=== PATIENT | female | born 1995 | race Hispanic/Latino ===

== ENCOUNTER 2018-02-19 17:42 | Emergency (ER) | payer OTHER ==
[~2018-02-19] VITALS: Ht 160 cm; Wt 88.1 kg
[~2018-02-19 17:42] MED LIST: BACTRIM DS1 TAB PO; CIPROFLOXACN500 MG PO; DEPO-PROVER150 MG/M1 IM; FLOXIN OTIC0.3 % OT; KEFLEX500 MG OR; LEVEMIR1000 UNITS SC; LORTAB 10 PO; METFORMIN500 MG PO; NORCO1 TA1 PO
[2018-02-19] MEDS ORDERED: MOTRIN800 MG PO (18:22)
[2018-02-19] MEDS ORDERED: SB CLOTRIMAZ1 % EX (18:22)
[2018-02-19 18:29] LABS: URINE BILIRUBIN - DIPSTICK NEGATIVE (NEGATIVE); URINE BLOOD DIPSTICK NEGATIVE (NEGATIVE); URINE COLOR YELLOW; URINE GLUCOSE - DIPSTICK >=1000 mg/dL (NEGATIVE); URINE KETONE 15 mg/dL (NEGATIVE); URINE LEUK ESTERASE NEGATIVE (NEGATIVE); URINE NITRITE - DIPSTICK NEGATIVE (Negative); URINE PROTEIN - DIPSTICK NEGATIVE (NEG-TRACE); URINE SPECIFIC GRAVITY 1.025; URINE UROBILINOGEN - DIPSTICK 0.2 E.U./dL (0.2)
[2018-02-19 18:31] LABS: URINE CLARITY CLEAR
[2018-02-19] MEDS ORDERED: TRESIBA FL100 UNIT/M SC (18:36)
[2018-02-19 18:55] VITALS: BP 139/92
== END 2018-02-19 18:55 | disposition home or self-care (01) | DRG 759 ==
LOC: ED 17:42
PROVIDERS: Emergency Medicine
DX: B37.3 Candidiasis of vulva and vagina (principal); E10.9 Type 1 diabetes mellitus without complications; Z79.4 Long term (current) use of insulin; Z91.14 Patient's other noncompliance with medication regimen

== ENCOUNTER 2020-02-29 | Emergency (ER) | payer OTHER ==
[~2020-02-29] MED LIST changes: +MOTRIN800 MG PO; +SB CLOTRIMAZ1 % EX; +TRESIBA FL100 UNIT/M SC
[2020-02-29] MEDS ORDERED: ATENOLOL25 MG PO (19:48)
[2020-02-29] MEDS ORDERED: KEFLEX500 M1 PO (21:08)
--- NOTE | 2020-03-02 12:54 | NUR ---
Notifed patient of Covid results (Negative). Advised patient to follow up with PCP or return to the ED for urgent needs. Advised patient to continue practicing Covid prevention. Patient verbalized understanding.
== END 2020-02-29 21:20 | disposition home or self-care (01) | DRG 153 ==
DX: J02.9 Acute pharyngitis, unspecified (principal); E11.9 Type 2 diabetes mellitus without complications; Z79.4 Long term (current) use of insulin; Z20.828 Contact with and (suspected) exposure to other viral communicable diseases

== ENCOUNTER 2020-10-17 18:17 | Emergency (ER) | payer SELFPAY ==
[~2020-10-17] VITALS: Ht 160 cm; Wt 75.0 kg
[~2020-10-17 18:17] MED LIST changes: +ATENOLOL25 MG PO; +KEFLEX500 M1 PO
[2020-10-17 19:30] LABS: HEMATOCRIT 42.5 % (37.0-47.0); HEMOGLOBIN 14.5 g/dl (12.0-16.0); IMMATURE GRANULOCYTES 0.3 % (0.0-5.0); MEAN CELL VOLUME 89.7 fL CALC (80.0-100.0); MEAN CORPUSCULAR HGB 30.6 pG CALC (26.0-32.0); MEAN CORPUSCULAR HGB CONC 34.1 g/dL CAL (32.0-36.0); NEUT# 6.62 thou/uL (2.00-7.15); RED BLOOD COUNT 4.74 mill/uL (4.20-5.60); RED CELL DISTRI WIDTH 11.5 % (11.5-15.5)
[2020-10-17 19:45] LABS: URINE BILIRUBIN - DIPSTICK NEGATIVE (NEGATIVE); URINE BLOOD DIPSTICK NEGATIVE (NEGATIVE); URINE COLOR YELLOW; URINE GLUCOSE - DIPSTICK >=1000 mg/dL (NEGATIVE); URINE KETONE NEGATIVE (NEGATIVE); URINE LEUK ESTERASE NEGATIVE (NEGATIVE); URINE NITRITE - DIPSTICK POSITIVE (Negative); URINE PROTEIN - DIPSTICK NEGATIVE (NEG-TRACE); URINE UROBILINOGEN - DIPSTICK 0.2 E.U./dL (0.2)
[2020-10-17 19:48] LABS: ALBUMIN 4.1 g/dL (3.2-5.0); ALKALINE PHOSPHATASE 144 u/l (38-126); AMYLASE 47 u/l (30-110); ANION GAP 15 (6-22 (CALC)); BILIRUBIN, TOTAL 0.3 mg/dL (0.0-1.4); BUN 10 mg/dL (7-17); BUN/CREATININE RATIO 19 (12-20 (CALC)); CARBON DIOXIDE 25 mmol/l (22-30); CHLORIDE 99 mmol/l (95-108); CREATININE 0.6 mg/dL (0.5-1.0); GFR > 60 ML/MIN (>=60 (CALC)); GFR FOR AFR.AMER. > 60 ML/MIN (>=60 (CALC)); LIPASE 98 u/l (23-300); POTASSIUM 4.4 mmol/l (3.5-5.1); SGOT/AST 24 u/l (14-36); SODIUM 134 mmol/l (137-146); TOTAL PROTEIN 7.2 g/dL (6.3-8.2)
[2020-10-17 19:52] LABS: URINE BACTERIA FEW hpf; URINE RBC 0-2 RBC/hpf (0-5); URINE SQUAMOUS EPITHELIAL CELL FEW EPI/hpf (0-FEW); URINE WBC 0-2 WBC/hpf (0-5)
[2020-10-17 20:57] VITALS: BP 119/73
[2020-10-17] MEDS ORDERED: VOLTAREN75 MG PO (21:12)
== END 2020-10-17 21:28 | disposition home or self-care (01) | DRG 563 ==
LOC: ED 18:17
PROVIDERS: Family Medicine
DX: S39.012A Strain of muscle, fascia and tendon of lower back, initial encounter (principal); K59.00 Constipation, unspecified; E11.65 Type 2 diabetes mellitus with hyperglycemia; T38.3X6A Underdosing of insulin and oral hypoglycemic [antidiabetic] drugs, initial encounter; X58.XXXA Exposure to other specified factors, initial encounter; Z91.128 Patient's intentional underdosing of medication regimen for other reason; Z79.4 Long term (current) use of insulin

== ENCOUNTER 2021-05-23 11:24 | Emergency (ER) | payer OTHER ==
[~2021-05-23] VITALS: Ht 160 cm; Wt 71.4 kg
[~2021-05-23 11:24] MED LIST changes: +LORTAB 1010 MG PO; +MEDDOSEPAK PO; +NORCO1 TA2 PO; +NOVOLIN N100 UNIT/1 IJ; +TENORMIN PO; +TRAMADOL HCL50 MG PO; +TRESIBA100 UNIT/M SC; +VOLTAREN75 MG PO
[2021-05-23] MEDS ORDERED: BACTRIM DS1 TAB PO (12:30)
[2021-05-23] MEDS ORDERED: KEFLEX500 MG PO (12:30)
[2021-05-23 13:00] VITALS: BP 118/64
[2021-06-01] MEDS ORDERED: ATENOLOL25 MG PO (10:38)
[2021-06-14] MEDS ORDERED: TRAMADOL HCL50 MG PO (08:21)
== END 2021-05-23 13:00 | disposition home or self-care (01) | DRG 603 ==
LOC: ED 11:24
PROC: 0H98XZZ Drainage of Buttock Skin, External Approach (ICD-10-PCS; principal; 2021-05-23)
DX: L02.31 Cutaneous abscess of buttock (principal); E11.9 Type 2 diabetes mellitus without complications; T38.3X6A Underdosing of insulin and oral hypoglycemic [antidiabetic] drugs, initial encounter; Z91.128 Patient's intentional underdosing of medication regimen for other reason; Z79.4 Long term (current) use of insulin

== ENCOUNTER 2021-05-28 19:10 | Emergency (ER) | payer OTHER ==
[~2021-05-28] VITALS: Ht 160 cm; Wt 75.0 kg
[~2021-05-28 19:10] MED LIST changes: +KEFLEX500 MG PO
[2021-05-28 20:13] VITALS: BP 127/56
[2021-06-01] MEDS ORDERED: ATENOLOL25 MG PO (10:38)
[2021-06-14] MEDS ORDERED: TRAMADOL HCL50 MG PO (08:21)
== END 2021-05-28 20:48 | disposition home or self-care (01) | DRG 951 ==
LOC: ED 19:10
DX: Z48.01 Encounter for change or removal of surgical wound dressing (principal); E11.9 Type 2 diabetes mellitus without complications; Z79.4 Long term (current) use of insulin

== ENCOUNTER 2021-07-06 06:20 | Day surgery (SDC) | payer OTHER ==
[~2021-07-06] VITALS: Ht 160 cm; Wt 68.0 kg
[2021-07-06 08:43] VITALS: BP 114/68
== END 2021-07-06 08:55 | disposition home or self-care (01) | DRG 552 ==
LOC: ORM 06:20
PROVIDERS: ATTEND Anesthesiology Pain Medicine
DX: M46.1 Sacroiliitis, not elsewhere classified (principal); M12.9 Arthropathy, unspecified; M79.604 Pain in right leg
CPT/HCPCS: 20552; G0260

== ENCOUNTER 2022-04-14 07:51 | Emergency (ER) | payer OTHER ==
[2022-04-14] VITALS (7 sets, daily range): BP systolic 106–123; BP diastolic 44–80
[~2022-04-14] VITALS: Ht 160 cm; Wt 84.5 kg
[2022-04-14 08:33] LABS: HEMATOCRIT 45.3 % (37.0-47.0); HEMOGLOBIN 15.3 g/dl (12.0-16.0); IMMATURE GRANULOCYTES 0.6 % (0.0-5.0); MEAN CELL VOLUME 88.5 fL CALC (80.0-100.0); MEAN CORPUSCULAR HGB 29.9 pG CALC (26.0-32.0); MEAN CORPUSCULAR HGB CONC 33.8 g/dL CAL (32.0-36.0); NEUT# 8.91 thou/uL (2.00-7.15); RED BLOOD COUNT 5.12 mill/uL (4.20-5.60); RED CELL DISTRI WIDTH 12.5 % (11.5-15.5)
[2022-04-14 08:48] LABS: ALKALINE PHOSPHATASE 164 u/l (38-126); BUN 10 mg/dL (7-17); BUN/CREATININE RATIO 24 (12-20 (CALC)); CHLORIDE 104 mmol/l (95-108); CREATININE 0.4 mg/dL (0.5-1.0); GFR FOR AFR.AMER. > 60 ML/MIN (>=60 (CALC)); GFR OTHER RACES > 60 ML/MIN (>=60 (CALC)); LIPASE 112 u/l (23-300); POTASSIUM 4.1 mmol/l (3.5-5.1); SODIUM 136 mmol/l (137-146); TOTAL PROTEIN 7.2 g/dL (6.3-8.2)
[2022-04-14 08:51] LABS: ANION GAP 17 (6-22 (CALC)); BILIRUBIN, TOTAL 0.6 mg/dL (0.0-1.4); CARBON DIOXIDE 19 mmol/l (22-30)
[2022-04-14 08:52] LABS: SGOT/AST 411 u/l (14-36)
[2022-04-14 11:33] LABS: URINE BILIRUBIN - DIPSTICK NEGATIVE (NEGATIVE); URINE BLOOD DIPSTICK TRACE-INTACT (NEGATIVE); URINE COLOR YELLOW; URINE GLUCOSE - DIPSTICK >=1000 mg/dL (NEGATIVE); URINE KETONE 40 mg/dL (NEGATIVE); URINE LEUK ESTERASE NEGATIVE (NEGATIVE); URINE PH 5.5 (4.5-8.0); URINE PROTEIN - DIPSTICK NEGATIVE (NEG-TRACE); URINE SPECIFIC GRAVITY <=1.005; URINE UROBILINOGEN - DIPSTICK 0.2 E.U./dL (0.2)
[2022-04-14 11:34] LABS: URINE NITRITE - DIPSTICK NEGATIVE (Negative)
== END 2022-04-14 13:11 | disposition home or self-care (01) | DRG 125 ==
LOC: ED 07:51
PROVIDERS: Family Medicine
DX: S05.01XA Injury of conjunctiva and corneal abrasion without foreign body, right eye, initial encounter (principal); R51.9 Headache, unspecified; G93.0 Cerebral cysts; E11.9 Type 2 diabetes mellitus without complications; Z79.4 Long term (current) use of insulin; V89.2XXA Person injured in unspecified motor-vehicle accident, traffic, initial encounter
CPT/HCPCS: Q9967

== ENCOUNTER 2022-04-16 11:18 | Emergency (ER) | payer OTHER ==
[~2022-04-16] VITALS: Ht 160 cm; Wt 84.6 kg
[2022-04-16 12:40] LABS: HEMATOCRIT 46.7 % (37.0-47.0); HEMOGLOBIN 15.7 g/dl (12.0-16.0); IMMATURE GRANULOCYTES 0.3 % (0.0-5.0); MEAN CORPUSCULAR HGB 29.9 pG CALC (26.0-32.0); MEAN CORPUSCULAR HGB CONC 33.6 g/dL CAL (32.0-36.0); NEUT# 7.91 thou/uL (2.00-7.15); RED BLOOD COUNT 5.25 mill/uL (4.20-5.60); RED CELL DISTRI WIDTH 12.7 % (11.5-15.5)
[2022-04-16 12:56] LABS: ALBUMIN 4.2 g/dL (3.2-5.0); ALKALINE PHOSPHATASE 115 u/l (38-126); ANION GAP 17 (6-22 (CALC)); BILIRUBIN, TOTAL 0.8 mg/dL (0.0-1.4); BUN 12 mg/dL (7-17); BUN/CREATININE RATIO 30 (12-20 (CALC)); CARBON DIOXIDE 21 mmol/l (22-30); CHLORIDE 103 mmol/l (95-108); CREATININE 0.4 mg/dL (0.5-1.0); GFR FOR AFR.AMER. > 60 ML/MIN (>=60 (CALC)); GFR OTHER RACES > 60 ML/MIN (>=60 (CALC)); POTASSIUM 4.3 mmol/l (3.5-5.1); SODIUM 136 mmol/l (137-146); TOTAL PROTEIN 7.8 g/dL (6.3-8.2)
[2022-04-16 12:57] LABS: SGOT/AST 45 u/l (14-36)
[2022-04-16 13:57] VITALS: BP 98/76
[2022-04-16] MEDS ORDERED: FLOXIN OTIC0.3 % OD (14:15)
== END 2022-04-16 14:20 | disposition home or self-care (01) | DRG 125 ==
LOC: ED 11:18
PROVIDERS: Family Medicine
DX: S05.01XA Injury of conjunctiva and corneal abrasion without foreign body, right eye, initial encounter (principal); S00.83XA Contusion of other part of head, initial encounter; G93.0 Cerebral cysts; E11.9 Type 2 diabetes mellitus without complications; V89.2XXA Person injured in unspecified motor-vehicle accident, traffic, initial encounter; Z79.4 Long term (current) use of insulin
CPT/HCPCS: Q9967

== ENCOUNTER 2022-11-03 00:10 | Emergency (ER) | payer OTHER ==
[~2022-11-03] VITALS: Ht 160 cm; Wt 86.0 kg
[~2022-11-03 00:10] MED LIST changes: +FLOXIN OTIC0.3 % OD
[2022-11-03] MEDS ORDERED: OZEMPIC2 MG/1.5 M SC (01:31)
[2022-11-03] MEDS ORDERED: CLEOCIN300 MG PO (01:33)
[2022-11-03] MEDS ORDERED: LORTAB 1010 MG PO (01:34)
[2022-11-03 01:58] VITALS: BP 100/70
== END 2022-11-03 01:58 | disposition home or self-care (01) | DRG 603 ==
LOC: ED 00:10
PROC: 0H90XZZ Drainage of Scalp Skin, External Approach (ICD-10-PCS; principal; 2022-11-03)
DX: L02.811 Cutaneous abscess of head [any part, except face] (principal); E11.9 Type 2 diabetes mellitus without complications; Z79.4 Long term (current) use of insulin; Z48.01 Encounter for change or removal of surgical wound dressing

== ENCOUNTER 2022-11-03 23:08 | Emergency (ER) | payer OTHER ==
[~2022-11-03] VITALS: Ht 160 cm; Wt 86.3 kg
[~2022-11-03 23:08] MED LIST changes: +CLEOCIN300 MG PO; +OZEMPIC2 MG/1.5 M SC
[2022-11-03 23:58] VITALS: BP 114/65
== END 2022-11-04 00:02 | disposition home or self-care (01) | DRG 951 ==
LOC: ED 23:08
DX: Z48.01 Encounter for change or removal of surgical wound dressing (principal); E11.9 Type 2 diabetes mellitus without complications; Z79.4 Long term (current) use of insulin